=== PATIENT | male | born 1995 | race Hispanic/Latino ===

== ENCOUNTER 2019-03-10 00:09 | Emergency (ER) | payer OTHER ==
[2019-03-10 00:27] VITALS: O2SAT 99
[2019-03-10 01:26] LABS: EOS # 0.8 K/uL (0.0-0.7); EOS % 16.7 % (0.0-4.0); HEMOGLOBIN 14.8 g/dL (12.0-18.0); LYMPH # 1.4 K/uL (1.0-4.3); LYMPH % 27.8 % (20.0-40.0); MEAN CELL VOLUME 85.6 fl (80.0-94.0); MEAN CORPUSCULAR HEMOGLOBIN 28.9 pg (27.0-31.0); MEAN CORPUSCULAR HGB CONC 33.8 g/dL (33.0-37.0); MEAN PLATELET VOLUME 8.7 fl (7.2-11.7); MONO # 0.3 K/uL (0.0-0.8); MONO % 5.6 % (0.0-10.0); NEUT # 2.5 K/uL (1.8-7.0); NEUT % 49.9 % (50.0-75.0); NRBC % 0.2 % (0.0-0.0); RBC 5.1 Mil/uL (4.40-5.90); RED CELL DISTRIBUTION WIDTH 12.5 % (11.5-14.5)
[2019-03-10 01:36] LABS: ALB/GLOB RATIO 1.5 (1.0-2.1); ALBUMIN 4.5 g/dL (3.5-5.0); ALT/SGPT 38 U/L (21-72); AST/SGOT 21 U/L (17-59); BLOOD UREA NITROGEN 23 mg/dl (9-20); CALCIUM 9.1 mg/dL (8.4-10.2); GFR NON-AFRICAN AMERICAN > 60; URINE BILIRUBIN NEGATIVE (NEGATIVE); URINE BLOOD NEGATIVE (NEGATIVE); URINE CLARITY CLEAR (Clear); URINE COLOR YELLOW (YELLOW); URINE GLUCOSE (UA) NEG (NEGATIVE); URINE LEUKOCYTE ESTERASE NEG Leu/uL (Negative); URINE PROTEIN 30 mg/dL (NEGATIVE); URINE UROBILINOGEN 0.2-1.0 mg/dL (0.2-1.0)
[2019-03-10 01:47] LABS: BARBITURATES, UR NEGATIVE (NEGATIVE); BENZODIAZEPINES, UR NEGATIVE (NEGATIVE); OPIATES, UR NEGATIVE (NEGATIVE); PHENCYCLIDINE, UR NEGATIVE (NEGATIVE)
--- NOTE | 2019-03-10 02:18 | ED PDOC ---
HPI: Chest Pain Time Seen by Provider: 03/10/19 00:29 Chief Complaint (Nursing): Palpitations Chief Complaint (Provider): Chest Pain History Per: Patient History/Exam Limitations: no limitations Onset/Duration Of Symptoms: Days (x2) Quality: Burning Additional Complaint(s): 23 years old male with history of anxiety presents to ER for evaluation of chest burning sensation onset 2 days ago. Reports burning sensation is in epigastric area as well as in his throat. Patient also reports intermittent finger tingling more on the left side going from the neck down to left fingers or sometimes just the fingers. He states right now tingling seems as it comes and goes. Patient reports the chest burning sensation is similar to when he has anxiety. He states symptoms started after he was at a construction site at work and went to an area where they had a strong paint and did not have a respiratory mask on. Patient was seen in Urgent Care today and where x-ray was done that was normal. He was given magic mouth wash without relief. Patient reports he had a week of URI with cough recently. He denies difficulty breathing, headaches, changes in vision, recent travel, prolonged mobilization and cardiac problems. PMD: None provided Past Medical History Reviewed: Historical Data, Nursing Documentation, Vital Signs Vital Signs: Last Vital Signs Temp 98.4 F 03/10/19 00:25 Pulse 70 03/10/19 00:25 Resp 19 03/10/19 00:25 BP 134/78 03/10/19 00:25 Pulse Ox 99 03/10/19 00:25 Primary Care Provider: FAMILY PROVIDER,NO - Medical History PMH: Anxiety - Surgical History Surgical History: No Surg Hx - Family History Family History: States: Unknown Family Hx - Social History Current smoker - smoking cessation education provided: No Drugs: Denies - Home Medications Home Medications: Ambulatory Orders Medication Instructions Recorded Famotidine [Pepcid] 20 mg PO DAILY #20 tab 03/10/19 - Allergies Allergies/Adverse Reactions: Allergies Allergy/AdvReac Type Severity Reaction Status Date / Time Penicillins Allergy RASH Verified 03/10/19 00:27 RANDEE Risk Score for UA/NSTEMI - RANDEE Risk Score Age > 64: NO 3 or more CAD Risk Factors: NO Known CAD (Stenosis greater than 50%): NO Aspirin use in past 7 days: NO Severe Angina: NO EKG ST changes greater than 0.5mm: NO Positive Cardiac Marker: NO RANDEE Score: 0 Risk %: 5% Review of Systems ROS Statement: Except As Marked, All Systems Reviewed And Found Negative Eyes: Negative for: Vision Change Cardiovascular: Positive for: Chest Pain (burning) Respiratory: Negative for: Shortness of Breath Neurological: Positive for: Other (Tingling of fingers). Negative for: Headache Physical Exam - Reviewed Nursing Documentation Reviewed: Yes Vital Signs Reviewed: Yes - Physical Exam Appears: Positive for: No Acute Distress (Anxious appearing) Head Exam: Positive for: ATRAUMATIC, NORMOCEPHALIC Skin: Positive for: Normal Color, Warm, Dry Eye Exam: Positive for: Normal appearance, EOMI, PERRL ENT: Positive for: Normal ENT Inspection Neck: Positive for: Normal (no tenderness, no menigismus), Painless ROM, Supple Cardiovascular/Chest: Positive for: Regular Rate, Rhythm, Chest Non Tender. Negative for: Murmur Respiratory: Positive for: Normal Breath Sounds. Negative for: Accessory Muscle Use, Rales, Rhonchi, Stridor, Wheezing, Respiratory Distress Gastrointestinal/Abdominal: Positive for: Normal Exam, Soft. Negative for: Tenderness Back: Positive for: Normal Inspection. Negative for: L CVA Tenderness, R CVA Tenderness Extremity: Positive for: Normal ROM, Other (pulses +2, capillary refill <2sec). Negative for: Tenderness, Pedal Edema, Calf Tenderness, Deformity, Swelling Neurological/Psych: Positive for: Awake, Alert, Symmetric/Intact Strength (5/5 x4), Oriented (x3), Gait (normal steady), magnet placer II-XII (intact), Other (normal finger to nose). Negative for: Motor/Sensory Deficits (motor and sensation intact) - Laboratory Results Result Diagrams: 03/10/19 01:15 03/10/19 01:15 Lab Results: Troponin I < 0.0120 ng/mL (0.00-0.120) 03/10/19 01:15 Total Bilirubin 0.5 mg/dl (0.2-1.3) 03/10/19 01:15 AST 21 U/L (17-59) 03/10/19 01:15 ALT 38 U/L (21-72) 03/10/19 01:15 Alkaline Phosphatase 45 U/L (38-126) 03/10/19 01:15 Total Protein 7.4 G/DL (6.3-8.2) 03/10/19 01:15 Albumin 4.5 g/dL (3.5-5.0) 03/10/19 01:15 Globulin 2.9 gm/dL (2.2-3.9) 03/10/19 01:15 Albumin/Globulin Ratio 1.5 (1.0-2.1) 03/10/19 01:15 Urine Color Yellow (YELLOW) 03/10/19 01:15 Urine Clarity Clear (Clear) 03/10/19 01:15 Urine pH 6.0 (5.0-8.0) 03/10/19 01:15 Ur Specific [place] 1.020 (1.003-1.030) 03/10/19 01:15 Urine Protein 30 mg/dL (NEGATIVE) 03/10/19 01:15 Urine Glucose (UA) Neg mg/dL (NEGATIVE) 03/10/19 01:15 Urine Ketones Negative mg/dL (NEGATIVE) 03/10/19 01:15 Urine Blood Negative (NEGATIVE) 03/10/19 01:15 Urine Nitrate Negative (NEGATIVE) 03/10/19 01:15 Urine Bilirubin Negative (NEGATIVE) 03/10/19 01:15 Urine Urobilinogen 0.2-1.0 mg/dL (0.2-1.0) 03/10/19 01:15 Ur Leukocyte Esterase Neg Klaus/uL (Negative) 03/10/19 01:15 Urine RBC (Auto) < 1 /hpf (0-3) 03/10/19 01:15 Urine Microscopic WBC < 1 /hpf (0-5) 03/10/19 01:15 - ECG ECG Rhythm: Positive for: Normal QRS, Sinus Rhythm. Negative for: ST/T Changes Rate: 75 O2 Sat by Pulse Oximetry: 99 (RA) Pulse Ox Interpretation: Normal Medical Decision Making Medical Decision Making: Time: 49 MDM: Anxiety vs. reflux --Pepcid 20 mg IVP -- labs -- EKG -- CXR -- re eval Discussed case with Dr. Ag who agrees with assessment and plan 219 on re eval pt reports he feels a little better, neurologically intact, labs wnl, ekg normal, pt is stable for dc Discussed results, diagnosis, treatment, return precautions and f/u with pt who is understanding, in agreement and stable for dc Scribe Attestation: Documented by Larisa Mayes, acting as a scribe for GREG Roberto. Provider Scribe Attestation: All medical record entries made by the Scribe were at my direction and personally dictated by me. I have reviewed the chart and agree that the record accurately reflects my personal performance of the history, physical exam, medical decision making, and the department course for this patient. I have also personally directed, reviewed, and agree with the discharge instructions and disposition. Disposition - Clinical Impression Clinical Impression: Chest pain, Exposure to chemical inhalation - Patient ED Disposition Is Patient to be Admitted: No Counseled Patient/Family Regarding: Studies Performed, Diagnosis, Need For Followup, Rx Given - Disposition Referrals: your, doctor [Other] Disposition: Routine/Home Disposition Time: 02:34 Condition: IMPROVED Additional Instructions: The emergency medical care you received today was directed at your acute symptoms. If you were prescribed any medication, please fill it and take as directed. It may take several days for your symptoms to resolve. Return to the Emergency Department if your symptoms worsen, do not improve, or if you have any other problems. Please contact your doctor in 2 days for re-evaluation and follow up / or call one of the physicians/clinics you have been referred to that are listed on the Patient Visit Information form that is included in your discharge packet. Bring any paperwork you were given at discharge with you along with any medications you are taking to your follow up visit. Our treatment cannot replace ongoing medical care by a primary care provider (PCP) outside of the emergency depart ment. Prescriptions: Famotidine [Pepcid] 20 mg PO DAILY #20 tab Instructions: Chest Pain, Chemical Ingestion (DC) Forms: [employer] (Romanian) Print Language: CITIZEN OF [place] - POA Present On Arrival: None
[2019-03-10 02:58] VITALS: BP 121/79; RESP 16; TEMP 98.2
[2019-03-10 05:45] VITALS: PULSE 75
--- NOTE | 2019-03-20 12:16 | CARD ---
APPROVED REPORT Date of service: 03/10/2019 EKG Measurement Heart [id number] <Conclusion> Normal sinus rhythm Normal ECG
== END 2019-03-10 02:58 | disposition home or self-care (01) ==
LOC: H.ER 00:09
DX: R07.9 Chest pain, unspecified (principal); Z77.098 Contact with and (suspected) exposure to other hazardous, chiefly nonmedicinal, chemicals; Z88.0 Allergy status to penicillin

== ENCOUNTER 2019-03-14 16:03 | Emergency (ER) | payer OTHER ==
[2019-03-14 16:12] VITALS: RESP 16; TEMP 97.9
--- NOTE | 2019-03-14 17:06 | ED PDOC ---
HPI: Chest Pain Time Seen by Provider: 03/14/19 16:15 Chief Complaint (Nursing): Chest Pain Chief Complaint (Provider): Left sided chest pain History Per: Patient History/Exam Limitations: no limitations Onset/Duration Of Symptoms: Hrs Current Symptoms Are (Timing): Still Present Pain Scale Rating Of: 7 Quality: Sharp. denies: Dull, Burning, Aching, Tightness, Pressure, Squeezing, "Pain" Associated Symptoms: Dyspnea. denies: Nausea, Diaphoresis, Syncope Modifying Factors: None Exacerbating Factors: Deep Breathing Alleviating Factors: None Additional Complaint(s): 23 yo male with history of anxiety and previous pneumothorax (several years ago) presents to the ED for chest pain and dyspnea. Patient [facility] ED 03/10/19 with similar complaints, at that time cardiac workup was negative. Patient reports that he is very worried as he was exposed to a toxic paint at work last week. He states that at that time he felt like he could not breath, then stepped out of the room and felt better. Patient reports dyspneic symptoms when he walks 1 block and is relieved with rest but denies exertional c hest pain. Patient reports chest pain started 30 hour before arriving to the ED. States it is left sided, non-radiating, associated with deep breathing and sharp in nature. Has not tried anything to relieve this pain. Denies fevers, chills, nausea, vomiting, abdominal pain, diarrhea, recent travel, cough, dysuria, frequency or urgency. PMD: Urgent care in [place] Social: Social drinker, Denies illicit drug use and smokes 3 cigars a year. - Risk Factors PE Risk Factors: Neg: Extremity Immobilization/Fx, Decreased Mobilty /Activity, Recent Major Surgery, Recent Hospitalization, Active Cancer, Previous DVT, Previous PE, CHF, Venous Stasis, Recent Major Trauma Past Medical History Reviewed: Historical Data, Nursing Documentation, Vital Signs Vital Signs: Last Vital Signs Temp 97.9 F 03/14/19 16:07 Pulse 96 H 03/14/19 16:07 Resp 16 03/14/19 16:07 BP Pulse Ox 100 03/14/19 16:07 Primary Care Provider: Jennifer Mtz - Medical History PMH: Anxiety - Surgical History Other surgeries: Knee surgery 12/2016 - Family History Family History: States: Other Other Family History: Family history : colorectal cancer - Social History Current smoker - smoking cessation education provided: No Ex-Smoker (has not smoked in the last 12 months): No Alcohol: None Drugs: Denies - Home Medications Home Medications: Ambulatory Orders Medication Instructions Recorded Famotidine [Pepcid] 20 mg PO DAILY #20 tab 03/10/19 ALPRAZolam [Xanax] 0.25 mg PO Q12 PRN #4 tab 03/14/19 Ibuprofen [Motrin Tab] 800 mg PO Q6 #28 tab 03/14/19 - Allergies Allergies/Adverse Reactions: Allergies Allergy/AdvReac Type Severity Reaction Status Date / Time Penicillins Allergy RASH Verified 03/10/19 00:27 RANDEE Risk Score for UA/NSTEMI - RANDEE Risk Score Age > 64: NO 3 or more CAD Risk Factors: NO Known CAD (Stenosis greater than 50%): NO Aspirin use in past 7 days: NO Severe Angina: NO EKG ST changes greater than 0.5mm: NO Positive Cardiac Marker: NO RANDEE Score: 0 Risk %: 5% Curb-65 Severity Score - CURB-65 Severity Score Confusion: No Bun >19mg/dl (>7mmol/L): No Respiratory Rate greater than/equal to 30: No Systolic BP <90 or Diastolic BP less than/equal 60mmHg: No Age >64: No Curb-65 Score: 0 Percentage 30-day mortality: 0.6% Wells Criteria for PE - Wells Criteria for Pulmonary Embolism Clinical Signs and Symptoms of DVT: No P.E is #1 Diagnosis, or Equally Likely: No Heart Rate >100: No Immobilization at least 3 days;Surgery previous 4 weeks: No Previous, objectively diagnosed PE or DVT: No Hemoptysis: No Malignancy w/treatment within 6 months, or palliative: No Total Score: 0 Review of Systems Constitutional: Negative for: Fever, Chills Cardiovascular: Positive for: Chest Pain. Negative for: Palpitations Respiratory: Positive for: Shortness of Breath, SOB with Exertion, Pleuritic Pain. Negative for: Cough, Hemoptysis, Sputum, Wheezing Gastrointestinal: Negative for: Nausea, Vomiting, Abdominal Pain, Diarrhea, Constipation Genitourinary Male: Negative for: Dysuria, Frequency Psych: Positive for: Anxiety Physical Exam - Reviewed Vital Signs Reviewed: Yes - Physical Exam Appears: Positive for: Well, No Acute Distress Head Exam: Positive for: NORMAL INSPECTION Skin: Positive for: Normal Color, Warm, Dry Eye Exam: Positive for: Normal appearance, PERRL Cardiovascular/Chest: Positive for: Regular Rate, Rhythm (Tachycardic, S1 and S2 on exam.). Negative for: JVD, Murmur Respiratory: Positive for: Normal Breath Sounds. Negative for: Decreased Breath Sounds, Accessory Muscle Use, Crackles, Rales, Rhonchi, Stridor, Wheezing, Respiratory Distress Gastrointestinal/Abdominal: Positive for: Normal Exam, Bowel Sounds, Soft. Negative for: Tenderness, Distended, Guarding, Rebound Neurological/Psych: Positive for: Awake, Alert (anxious) - Laboratory Results Result Diagrams: 03/14/19 17:26 03/14/19 17:26 - ECG O2 Sat by Pulse Oximetry: 100 - Progress ED Course And Treament: 23 yo male with history of anxiety and previous pneumothorax (years ago) presen grace to ED because of dyspnea and chest pain. Differential: ACS vs. Panic attack vs. Anxiety Plan: -- Chest Xray -- CBC -- CMP -- Troponin -- Xanax 0.25 mg x1 dose -- CRP -- ERP -- Both Urgent care and [place] radiology were contacted at [phone]- documents for chest xrays requested from both institutions they will be faxed over. Re-examined @ 1755 Patient reports that he now has chest pain that is worse when he leans forward and better when he leans back. -- At this time will add a CT angio pe protocol with focus on pericarditis. Re-examined @ 1850 Patient reports anxiety and frustration as he does not know where this pain is coming from. -- Labs including troponins and D-dimer were within normal limits and reviewed with the patient. -- Pending CT angio of the chest -- Pending ESR -- Pending CRP 1900: CT angio chest: no acute pathology - Findings explained to patient at this time, reports he understands. - Discharged with referral to Dr. Wallace (Cardiology) and with Ibuprofen pre scription for costochondritis like pain and Xanax for anxiety. Disposition - Clinical Impression Clinical Impression: Chest pain, Atypical chest pain - Patient ED Disposition Is Patient to be Admitted: No Comment: Dr. Wallace referral Doctor Will See Patient In The: Office - Disposition Referrals: Maya Wallace MD [Staff Provider] - Disposition: Routine/Home Disposition Time: 19:15 Condition: STABLE Prescriptions: ALPRAZolam [Xanax] 0.25 mg PO Q12 PRN #4 tab PRN Reason: Anxiety Ibuprofen [Motrin Tab] 800 mg PO Q6 #28 tab Instructions: Chest Pain That Is Not Caused by the Heart (DC), Chest Pain (DC) Forms: [employer] (Spanish)
[2019-03-14 17:31] LABS: BASO % 0.1 % (0.0-2.0); HEMOGLOBIN 16.4 g/dL (12.0-18.0); LYMPH % 14.7 % (20.0-40.0); MEAN CELL VOLUME 85.9 fl (80.0-94.0); MEAN CORPUSCULAR HEMOGLOBIN 29.2 pg (27.0-31.0); MEAN PLATELET VOLUME 8.9 fl (7.2-11.7); MONO # 0.3 K/uL (0.0-0.8); MONO % 4.3 % (0.0-10.0); NEUT # 5.7 K/uL (1.8-7.0); NEUT % 80.9 % (50.0-75.0); NRBC % 0.3 % (0.0-0.0); RBC 5.6 Mil/uL (4.40-5.90); RED CELL DISTRIBUTION WIDTH 12.6 % (11.5-14.5)
[2019-03-14 17:50] LABS: ALB/GLOB RATIO 1.5 (1.0-2.1); ALBUMIN 5.3 g/dL (3.5-5.0); ALT/SGPT 32 U/L (21-72); AST/SGOT 23 U/L (17-59); BLOOD UREA NITROGEN 16 mg/dl (9-20); GFR NON-AFRICAN AMERICAN > 60
[2019-03-14] MEDS ORDERED: Sodium Chloride 0.9% 50 ML IV ONE (18:04)
[2019-03-14] MEDS ORDERED: Iodixanol 320 MG/ML 100 ML BOTTLE IV ONE (18:04)
--- NOTE | 2019-03-14 19:01 | CT ---
Date of service: 03/14/2019 CTA chest PE protocol Indication: r/o PE or pericarditisw Technique: Contiguous axial images were obtained through the chest with intravenous contrast enhancement. Sagittal and coronal reconstructions were generated and reviewed. This CT exam was performed using 1 or more of the following dose reduction techniques: Automated exposure control, adjustment of the MAA and/or kV according to patient size, and/or use of iterative reconstruction technique. IV contrast: 90 cc Visipaque 320 IV Radiation dose (DLP): 375.8 MGy-cm. Comparison: Chest x-ray performed the same day. Findings: Visualized portions of the inferior thyroid gland appear unremarkable. The mediastinal and hilar vascular structures appear within normal limits. The heart appears within normal limits of size. Small triangular soft tissue within the anterior mediastinum presumed to reflect residual thymic tissue. No large central or segmental pulmonary embolus identified. No focal consolidation. No pleural effusion. No pneumothorax. No suspicious pulmonary nodules measuring greater than 5 mm. Limited visualized portions of the upper abdomen appear grossly unremarkable. No acute osseous abnormality is detected. Impression: No large central or segmental pulmonary embolus identified. No acute findings identified.
[2019-03-14 20:12] VITALS: BP 134/68; PULSE 74; O2SAT 98
--- NOTE | 2019-03-15 11:17 | RAD ---
Date of service: 03/14/2019 HISTORY: Chest pain COMPARISON: No prior. TECHNIQUE: Chest PA and lateral FINDINGS: LINES AND TUBES: None. LUNG AND PLEURA: The lungs are well inflated and clear. No pleural effusion or pneumothorax. HEART AND MEDIASTINUM: The heart is not enlarged. No aortic atherosclerotic calcifications present. The hilar and mediastinal contours are within normal limits. SKELETAL STRUCTURES: The bony structures are within normal limits for the patient's age. VISUALIZED UPPER ABDOMEN: Normal. OTHER FINDINGS: None. IMPRESSION: No active pulmonary disease.
--- NOTE | 2019-03-15 11:35 | CARD ---
APPROVED REPORT Date of service: 03/14/2019 EKG Measurement Heart [id number] <Conclusion> Normal sinus rhythm Normal Electrocardiogram
== END 2019-03-14 20:11 | disposition home or self-care (01) ==
LOC: H.ER 16:03
DX: R07.9 Chest pain, unspecified (principal); Z79.899 Other long term (current) drug therapy; Z87.891 Personal history of nicotine dependence; Z88.0 Allergy status to penicillin
CPT/HCPCS: 71046; 71275; 80053; 84484; 85025; 85378; 85651; 86140; 93005; 96374; 99282; J1885; Q9967